=== PATIENT | female | born 1960 | race American Indian/Alaskan Native ===

== ENCOUNTER 2022-05-28 17:06 | Emergency (ER) | payer MEDICAID ==
--- NOTE | 2022-05-28 17:52 | XRay Report ---
SOFT TISSUE NECK 2 VIEWS INDICATION: Dysphagia. Possible foreign body. COMPARISON: No relevant prior imaging study available. FINDINGS: Epiglottis: No significant abnormality. Airway: No significant abnormality. Retropharyngeal soft tissues: No significant abnormality. Bones: There is moderate cervical spondylosis. Additional findings: None. IMPRESSION: No radiopaque foreign body or other acute findings to explain the patient's dysphagia. Signer Name: Dario Crocker MD Signed: 05/28/2022 5:47 PM Workstation Name: [id number]
[2022-05-28] MEDS ORDERED: GLUCAGON (HUMAN RECOMBINANT) 1 MG/ML INJ IM ONE ×2 (21:12→22:18)
[2022-05-28] MEDS ORDERED: HYOSCYAMINE SUBL 0.125 MG TAB SL ONE (23:33)
--- NOTE | 2022-05-29 05:08 | Emergency Department Report ---
<[place] NUR - Last Filed: 05/29/22 09:42> ED General Adult HPI - General Chief complaint: Skin/Abscess/Foreign Body Stated complaint: OBJECT IN THROAT Time Seen by Provider: 05/28/22 21:07 - Related Data Previous Rx's Medication Instructions Recorded Last Taken Type Omeprazole Magnesium [PriLOSEC Otc] 20 mg PO BID 30 Days #60 tab NS 05/29/22 Unknown Rx Ondansetron (Nf) [Zofran TAB] 8 mg PO Q8HR PRN 5 Days #15 tablet 05/29/22 Unknown Rx NS Allergies Allergy/AdvReac Type Severity Reaction Status Date / Time No Known Allergies Allergy Unverified 05/28/22 17:08 ED Past Medical Hx - Medications Home Medications: Home Medications Medication Instructions Recorded Confirmed Last Taken Type Omeprazole Magnesium [PriLOSEC Otc] 20 mg PO BID 30 Days #60 tab NS 05/29/22 Unknown Rx Ondansetron (Nf) [Zofran TAB] 8 mg PO Q8HR PRN 5 Days #15 tablet 05/29/22 Unknown Rx NS ED Course - Reevaluation(s) Reevaluation #1: 05/29/22 09:42 pt signed out to me while waiting for director of research and development to come in and remove the foreign body/steak in her throat--at around 09:40 Dr Pratik Metz came and informed me that he was able to remove the steak and that the patient is stable enough to be discharged home. I will have this patient started on prilosec and zofran for anticipated symptoms post procedure. ED Disposition Clinical Impression: Foreign body in esophagus Qualifiers: Encounter type: initial encounter Qualified Code(s): T18.108A - Unspecified foreign body in esophagus causing other injury, initial encounter Disposition: 01 HOME / SELF CARE / HOMELESS Is pt being admited?: No Does the pt Need Aspirin: No Condition: Stable Instructions: Swallowed Foreign Body, Adult, [id number] Additional Instructions: You are discharged home on antiacid and antinausea medicine to be taken as needed Start with bland diet and advance as tolerated : Follow-up with your primary doctor in the next 3 to 5 days for progress Please do not hesitate to call or return to emergency room if your symptoms worsen Prescriptions: Omeprazole Magnesium [PriLOSEC Otc] 20 mg PO BID 30 Days #60 tab NS Ondansetron (Nf) [Zofran TAB] 8 mg PO Q8HR PRN 5 Days #15 tablet NS PRN Reason: Nausea Referrals: PRIMARY CARE,MD [Primary Care Provider] - 3-5 Days Time of Disposition: 09:50 <AGUSTINGARRETT ROMERONAYA - Last Filed: 05/31/22 15:09> ED General Adult HPI - General PUI?: No Source: patient Mode of arrival: Ambulatory Limitations: No Limitations - History of Present Illness Initial comments: STEAK STUCK IN THROAT. 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 SPITTING UP IN TRAIGE -: Sudden, hour(s) (1) Severity scale (0 -10): 5 Consistency: constant Improves with: none Worsens with: none Associated Symptoms: denies: denies other symptoms, confusion, chest pain, cough Treatments Prior to Arrival: none ED Review of Systems ROS: Stated complaint: OBJECT IN THROAT Other details as noted in HPI Constitutional: denies: chills, fever Eyes: denies: eye pain, eye discharge, vision change ENT: denies: ear pain, throat pain Respiratory: denies: cough, shortness of breath, wheezing Cardiovascular: denies: chest pain, palpitations Endocrine: no symptoms reported Gastrointestinal: denies: abdominal pain, nausea, diarrhea Genitourinary: denies: urgency, dysuria, discharge Musculoskeletal: denies: back pain, joint swelling, arthralgia Skin: denies: rash, lesions Neurological: denies: headache, weakness, paresthesias Psychiatric: denies: anxiety, depression Hematological/Lymphatic: denies: easy bleeding, easy bruising ED Past Medical Hx - Past Medical History Hx Hypertension: Yes ED Physical Exam - General Limitations: No Limitations General appearance: alert, in no apparent distress - Head Head exam: Present: atraumatic, normocephalic - Eye Eye exam: Present: normal appearance - ENT ENT exam: Present: mucous membranes moist - Neck Neck exam: Present: normal inspection - Respiratory Respiratory exam: Present: normal lung sounds bilaterally. Absent: respiratory distress - Cardiovascular Cardiovascular Exam: Present: regular rate, normal rhythm. Absent: systolic murmur, diastolic murmur, rubs, gallop - GI/Abdominal GI/Abdominal exam: Present: soft, normal bowel sounds - Extremities Exam Extremities exam: Present: normal inspection - Back Exam Back exam: Present: normal inspection - Neurological Exam Neurological exam: Present: alert, oriented X3 - Psychiatric Psychiatric exam: Present: normal affect, normal mood - Skin Skin exam: Present: warm, dry, intact, normal color. Absent: rash ED Course Vital Signs 05/28/22 05/29/22 05/29/22 17:09 02:30 07:49 Temperature 97.8 F 98.4 F Pulse Rate 62 65 66 Respiratory 20 17 18 Rate Blood Pressure Blood Pressure 140/80 142/78 124/77 [Right] O2 Sat by Pulse 100 96 99 Oximetry 05/29/22 05/29/22 05/29/22 08:42 08:46 08:56 Temperature 98 F Pulse Rate 69 Respiratory 13 Rate Blood Pressure 130/91 Blood Pressure [Right] O2 Sat by Pulse 98 98 100 Oximetry 05/29/22 05/29/22 05/29/22 09:00 09:16 09:30 Temperature Pulse Rate 66 72 Respiratory 18 17 Rate Blood Pressure 128/89 150/92 Blood Pressure [Right] O2 Sat by Pulse 97 100 88 Oximetry 05/29/22 05/29/22 05/29/22 09:40 09:45 10:00 Temperature 98.2 F Pulse Rate 91 H 77 64 Respiratory 19 11 L 24 Rate Blood Pressure 142/95 143/80 120/82 Blood Pressure [Right] O2 Sat by Pulse 97 100 100 Oximetry 05/29/22 05/29/22 10:16 10:30 Temperature Pulse Rate 64 72 Respiratory 13 14 Rate Blood Pressure 129/81 135/77 Blood Pressure [Right] O2 Sat by Pulse 100 97 Oximetry ED Medical Decision Making - Radiology Data Radiology results: report reviewed, image reviewed - Medical Decision Making glucagon given times two , no imrpovement, spoke with GI dr Palomino who will scope her in am Critical care attestation.: If time is entered above; I have spent that time in minutes in the direct care of this critically ill patient, excluding procedure time. ED Disposition Is pt being admited?: No Does the pt Need Aspirin: No
[2022-05-29] MEDS ORDERED: SODIUM CHLORIDE 0.9% 1000 ML 1,000 ML ONE (09:02)
--- NOTE | 2022-05-29 09:11 | Gastroenterology Consultation ---
History of Present Illness - Reason for Consult Consult date: 05/29/22 Food impaction Requesting physician: SHANDRA DICKSON - History of Present Illness The patient is a 62 yo female with an acute impaction of meat yesterday at 3 PM. No prior occurance, but does have mild chronic dysphagia and reflux. No prior throat or chest surgery. No recent imaging. The patient is a smoker. She has not thrown up any blood. She has no chest pain or SOB. She is unable to tole rate liquids, but is currently tolerating her secretions. Past History Past Medical History: GERD Past Surgical History: Other (No chest/throat surgery) Social history: smoking Family history: no significant family history Medications and Allergies Allergies Allergy/AdvReac Type Severity Reaction Status Date / Time No Known Allergies Allergy Unverified 05/28/22 17:08 Active Meds: I HAVE REVIEWED/RECONCILED MEDICATIONS Review of Systems - Review of Systems All systems: negative (as noted in the HPI) Exam - Constitutional Vital Signs: Temp Pulse Resp BP Pulse Ox 98.4 F 66 18 124/77 99 05/29/22 02:30 05/29/22 07:49 05/29/22 07:49 05/29/22 07:49 05/29/22 07:49 General appearance: no acute distress - EENT Eyes: PERRL, EOM intact ENT: hearing intact, clear oral mucosa - Neck Neck: supple, normal ROM - Respiratory Respiratory effort: normal Respiratory: bilateral: CTA - Cardiovascular Rhythm: regular Heart Sounds: Present: S1 & S2 Extremities: no ischemia, No edema - Gastrointestinal General gastrointestinal: Present: soft, non-tender, non-distended - Integumentary Integumentary: Present: clear, warm, dry - Neurologic Neurological: alert and oriented x3 - Psychiatric Psychiatric: appropriate mood/affect Assessment and Plan - Patient Problems (1) Foreign body in esophagus Current Visit: Yes Status: Acute Plan to address problem: - Upper endoscopy risks/benefits explained to patient; will plan EGD as soon as possible.
[2022-05-29] MEDS ORDERED: propofoL 200 MG/20 ML VIAL IV ONE (09:26)
--- NOTE | 2022-05-29 09:53 | Anesthesia Day of Surgery ---
Anesthesia Day of Surgery - Day of Surgery Patient Examined: Yes Patient H&P Reviewed: Yes Patient is NPO: Yes
--- NOTE | 2022-05-29 09:53 | Anesthesia Consultation ---
Anesthesia Consult and Med Hx Date of service: 05/29/22 - Airway Anesthetic Teeth Evaluation: Good, Chipped (upper front) ROM Head & Neck: Adequate Mental/Hyoid Distance: Adequate Mallampati Class: Class II Intubation Access Assessment: Probably Good - Pre-Operative Health Status ASA Pre-Surgery Classification: ASA2 Proposed Anesthetic Plan: MAC - Pulmonary Hx Smoking: Yes - Cardiovascular System Hx Hypertension: Yes - Central Nervous System Hx Psychiatric Problems: Yes (anxiety/depression) - Gastrointestinal Hx Gastroesophageal Reflux Disease: Yes (food impaction (steak))
--- NOTE | 2022-05-29 09:57 | Post Operative Note ---
Pre-op diagnosis: Food Impaction Post-op diagnosis: other (Same, Esophagitis) Findings: 1. Food impaction at 30cm; moved with pulsion into stomach 2. LA C erosive esophagitis 3. Normal stomach and duodenum Procedure: EGD with foreign body removal Anesthesia: MAC Surgeon: ÓSCAR ALVARENGA Estimated blood loss: none Pathology: none Specimen disposition: other (N/A) Condition: stable Disposition: other (Recs: 1. OK to discharge home. 2. Protonix or other antiacid daily. 3. Patient needs to follow up with us in clinic and we will arrange repeat EGD with evaluation of esophagitis.)
--- NOTE | 2022-05-29 09:58 | Post Anesthesia Evaluation ---
- Post Anesthesia Evaluation Patient Participated: Yes Airway Patent: Yes Stable Respiratory Function: Yes Nausea/Vomiting: No Temp > 96.8F: Yes Pain Manageable: Yes Adequeate Hydration: Yes Anesthesia Complications: No Block Receding Appropriately: Not Applicable Patient on Ventilator: No Other Comments: patient is being discharged from ER after successful dysimpaction
--- NOTE | 2022-05-29 10:39 | Operative Report ---
DATE OF SURGERY: 05/29/2022 PROCEDURE PERFORMED: Esophagogastroduodenoscopy with foreign body removal. PREOPERATIVE DIAGNOSIS: Foreign body in the esophagus. POSTOPERATIVE DIAGNOSES: Foreign body in the esophagus, esophagitis. ENDOSCOPIST: Pratik Metz MD. INSTRUMENT: The Olympus video endoscope. MEDICATIONS: MAC anesthesia by anesthesia services. COMPLICATIONS: No apparent complications. ESTIMATED BLOOD LOSS: Minimal. SPECIMENS: None. IMPLANTS: None. ASSISTANTS: None. CONDITION AT COMPLETION: Stable. DESCRIPTION OF PROCEDURE: The patient was informed of the risks and benefits of the procedure. She signed the informed consent to proceed. She was placed in a left lateral decubitus position. The above sedative medications were given. Her vital signs remained stable throughout the procedure. The instrument was advanced from the mouth to 30 cm from the incisors. At that point, a large bolus of meat was seen. With gentle pulsion, the meat was pushed into the stomach, and the endoscope was advanced to the second portion of the duodenum, the bowel was insufflated and the endoscope was slowly withdrawn. FINDINGS: 1. Food impaction in the esophagus at 30 cm from the incisors; moved with gentle pulsion into the stomach. 2. LA grade C erosive esophagitis in the lower and middle third of the esophagus. 3. Normal stomach and duodenum. RECOMMENDATIONS: 1. Okay to discharge the patient home. 2. Mechanical soft diet. 3. Protonix or other antacid daily. 4. The patient needs to follow up with us in clinic and we will arrange a repeat upper endoscopy with evaluation of esophagitis and dilation if needed. TID: [id number] RECEIPT: [id number] KAI/ARV/ADA
[2022-05-29 10:51] VITALS: BP 135/77
== END 2022-05-29 11:18 | disposition home or self-care (01) ==
LOC: ED 17:06
DX: T18.108A Unspecified foreign body in esophagus causing other injury, initial encounter (principal); X58.XXXA Exposure to other specified factors, initial encounter; Y93.89 Activity, other specified; Y92.89 Other specified places as the place of occurrence of the external cause; Y99.8 Other external cause status
CPT/HCPCS: 43247; 70360; 96372; 99283; J1610; J2704; J7030